=== PATIENT | female | born 1970 | race Caucasian/White ===

== ENCOUNTER 2017-05-24 07:32 | Day surgery (SDC) | payer OTHER, MEDICAID ==
[2017-05-24] MEDS: CEFAZOLIN 1 GM/50 ML (PMX) 50 ML IVPB ×2 (10:16→11:00)
[2017-05-24] MEDS: SOD CHLORIDE 0.9% 1,000 ML IV (10:45)
[2017-05-24] MEDS: HEPARIN 1000 UNITS/ML 10 ML INJ ×2 (11:00→11:25)
[2017-05-24] MEDS: SOD CHLORIDE 0.9% 500 ML (11:00)
[2017-05-24] MEDS: FENTAnyl 50 MCG/ML VIAL (11:00)
[2017-05-24] MEDS: MIDAZOLAM 1 MG/ML 2 ML INJ (11:00)
[2017-05-24] MEDS: POLYMYXIN/BACITRACIN 1L IRRIG IRR (11:25)
[2017-05-24] MEDS ORDERED: HYDROCODONE/APAP (5/325) TAB PO (12:00)
== END 2017-05-24 18:00 | disposition home or self-care (01) ==
LOC: SDS 07:32
DX: C50.911 Malignant neoplasm of unspecified site of right female breast (principal)
CPT/HCPCS: 36561; 76942

== ENCOUNTER 2017-08-18 09:00 | Observation (INO) | payer MEDICAID, OTHER ==
[2017-08-18 12:26] LABS: ADD MAN DIFF? NO
[2017-08-18] MEDS ORDERED: CEFAZOLIN 2 GM/50 ML (PMX) 50 ML IVPB (12:30)
[2017-08-18] MEDS ORDERED: SOD CHLORIDE 0.9% 1,000 ML IV (12:30)
[2017-08-18 12:31] LABS: BASOPHILS % 0.3 % (0.0-2.0); EOSINOPHILS % 0.8 % (0.0-7.0); HEMATOCRIT 33.2 % (37.0-47.0); HEMOGLOBIN 11.3 g/dl (12.0-16.0); LYMPHOCYTES # 0.6 10^3/ul (0.8-2.9); LYMPHOCYTES % 15.8 % (15.0-51.0); MEAN CORPUSCULAR HEMOGLOBIN 30.3 pg (29.0-33.0); MEAN PLATELET VOLUME 9.7 fl (7.4-10.4); MONOCYTE # 0.5 10^3/ul (0.3-0.9); NEUTROPHIL # 2.8 10^3/ul (1.6-7.5); NEUTROPHILS % 70.8 % (39.0-77.0); PLATELET COUNT 227 10^3/UL (140-415); RED BLOOD COUNT 3.73 10^6/ul (4.20-5.40); RED CELL DISTRIBUTION WIDTH 16.7 % (11.5-14.5)
[2017-08-18 12:34] LABS: HOLD TRANSMISSIONS 1
[2017-08-18 12:52] LABS: INR 0.97
[2017-08-18 12:53] LABS: PARTIAL THROMBOPLASTIN TIME 27.4 Sec (25.0-35.0)
[2017-08-18 13:02] LABS: ALANINE AMINOTRANSFERASE 68 IU/L (13-69); ALBUMIN 4.6 g/dl (3.3-4.9); ALBUMIN/GLOBULIN RATIO 1.35; ALKALINE PHOSPHATASE 80 IU/L (42-121); ANION GAP 18 (8-16); ASPARTATE AMINO TRANSFERASE 88 IU/L (15-46); BILIRUBIN,INDIRECT 0.2 mg/dl (0-1.1); BILIRUBIN,TOTAL 0.2 mg/dl (0.2-1.3); CARBON DIOXIDE 25 mmol/L (21-31); CHLORIDE 108 mmol/L (97-110); GLUCOSE 91 mg/dl (70-220)
[2017-08-18 13:15] LABS: BLOOD UREA NITROGEN 11 mg/dl (7-20); CALCIUM 9.8 mg/dl (8.4-10.2); CREATININE 0.62 mg/dl (0.44-1.00); POTASSIUM 4.3 mmol/L (3.5-5.1); SODIUM 147 mmol/L (135-144)
[2017-08-18] MEDS ORDERED: ISOSULFAN BLUE 1% 5 ML INJ SC (15:43)
[2017-08-18] MEDS ORDERED: MIDAZOLAM 1 MG/ML 2 ML INJ (15:47)
[2017-08-18] MEDS: STERILE WATER 1L IRRIG BTL IRR (16:20)
[2017-08-18] MEDS ORDERED: ONDANSETRON 4 MG INJ (17:25)
[2017-08-18] MEDS ORDERED: LIDOCAINE 2% (SDV) 5 ML INJ (17:25)
[2017-08-18] MEDS ORDERED: CEFAZOLIN 1 GM INJ (17:25)
[2017-08-18] MEDS ORDERED: PROPOFOL 20 ML (17:25)
[2017-08-18] MEDS ORDERED: ACETAMINOPHEN 1000MG/100ML IV 100 ML IVPB (17:30)
[2017-08-18] MEDS: morphine 2 MG INJ IV (17:53)
[2017-08-18] MEDS: ONDANSETRON 4 MG INJ IV ×2 (17:54→21:16)
[2017-08-18] MEDS: MEPERIDINE 25 MG INJ IV (17:58)
[2017-08-18] MEDS: FENTAnyl 50 MCG/ML VIAL IV ×2 (17:59→18:19)
[2017-08-18] MEDS: HYDROmorphONE (0.2 MG/ML) 10ML SYG IV ×2 (17:59→18:17)
[2017-08-18] MEDS ORDERED: DIPHENHYDRAMINE 50 MG INJ IV (18:00)
[2017-08-18] MEDS ORDERED: METOCLOPRAMIDE 10 MG INJ IV (18:00)
[2017-08-18] MEDS ORDERED: HYDROmorphONE (0.2 MG/ML) 10ML SYG IV (18:00)
[2017-08-18] MEDS: OXYCODONE/ACETAMINOPHEN (5/325) TAB PO (21:05)
[2017-08-18] MEDS: D5W-0.45 NACL + KCL 20 MEQ 1,000 ML IV (21:05)
[2017-08-18] MEDS: DIPHENHYDRAMINE 50 MG INJ IV (21:16)
[2017-08-19] MEDS: D5W-0.45 NACL + KCL 20 MEQ 1,000 ML IV ×2 (01:15→09:41)
[2017-08-19] MEDS: OXYCODONE/ACETAMINOPHEN (5/325) TAB PO ×2 (02:37→12:45)
[2017-08-19] MEDS: DIPHENHYDRAMINE 50 MG INJ IV (09:39)
== END 2017-08-19 17:55 | disposition home or self-care (01) ==
LOC: SDS 09:00 → REC 17:16 → MS2 19:00
DX: C50.911 Malignant neoplasm of unspecified site of right female breast (principal); C77.3 Secondary and unspecified malignant neoplasm of axilla and upper limb lymph nodes
CPT/HCPCS: 19301; 80053; 85025; 85610; 85730; 88309; 88342; 99217